=== PATIENT | male | born 1970 | race Caucasian/White ===

== ENCOUNTER 2024-12-01 02:23 | Emergency (ER) | payer MEDICAID ==
[~2024-12-01] VITALS: Ht 177.8 cm; Wt 136.1 kg
[2024-12-01] MEDS ORDERED: PAROXETINE HCL20 MG PO (02:43)
== END 2024-12-01 03:03 | disposition home or self-care (01) ==
LOC: ED 02:23 → EDBD 02:27 → ED 03:03
DX: F41.9 Anxiety disorder, unspecified (principal)

== ENCOUNTER 2025-03-06 05:27 | Emergency (ER) | payer MEDICAID ==
[~2025-03-06] VITALS: Wt 147.4 kg
[~2025-03-06 05:27] MED LIST: PAROXETINE HCL20 MG PO
[2025-03-06] MEDS ORDERED: BUMETANIDE1 MG PO (05:48)
[2025-03-06] MEDS ORDERED: CARVEDILOL3.125 MG PO (05:49)
[2025-03-06] MEDS ORDERED: ASPIRIN ADULT L81 M1 PO (05:49)
[2025-03-06] MEDS ORDERED: LISINOPRIL10 M1 PO (05:49)
[2025-03-06] MEDS ORDERED: TAMSULOSIN HCL0.4 MG PO (05:50)
[2025-03-06] MEDS ORDERED: ALLOPURINOL300 MG PO (05:50)
[2025-03-06 06:00] LABS: BASO # 0.1 10*3/uL (0.0-0.1); BASO % 0.5 % (0.0-1.0); EOS # 0.1 10*3/uL (0.0-0.4); EOS % 1.4 % (1.0-4.0); MEAN CELL VOLUME 90.2 fl (80.0-94.0); MEAN CORPUSCULAR HGB 30.4 pg (27.0-31.0); MEAN PLATELET VOLUME 10.6 fl (9.6-12.3); MONO # 0.8 10*3/uL (0.1-1.0); MONO % 7.7 % (3.0-9.0); NEUT # 7.0 10*3/uL (2.3-7.9); NEUT % 70.6 % (47.0-73.0); NUCLEATED RED BLOOD CELL 0.0 % (0.0-0.0); NUCLEATED RED BLOOD CELL 0.0 10*3/uL (0.0-0.0); PLATELET COUNT AUTOMATED 345 10*3/uL (130-400); RED CELL DISTRI WIDTH 12.9 % (0-14.5)
[2025-03-06 06:16] LABS: ACT PARTIAL THROMBO TIME 25.8 SECONDS (20.0-32.1)
[2025-03-06 06:18] LABS: BUN 23 mg/dl (9-23); SGPT/ALT 10 U/L (5-49)
[2025-03-06] MEDS ORDERED: ATIVAN1 MG PO (08:35)
== END 2025-03-06 08:37 | disposition home or self-care (01) ==
LOC: ED 05:27
PROVIDERS: Internal Medicine
DX: F41.9 Anxiety disorder, unspecified (principal); I10 Essential (primary) hypertension